=== PATIENT | female | born 1990 | race Two or more races ===

== ENCOUNTER 2019-09-17 18:47 | Emergency (ER) | payer SELFPAY ==
[~2019-09-17] VITALS: Ht 162.6 cm; Wt 70.3 kg
[2019-09-17] MEDS ORDERED: IV NORMAL SALINE 1000ML BAG 1,000 ML IV SCH (19:35)
--- NOTE | 2019-09-17 19:40 | PHYS DOC ---
Past Medical History Past Medical History: No Pertinent History Past Surgical History: Other Additional Past Surgical Histo: right ankle repair Smoking Status: Never Smoker Alcohol Use: None General Adult EDM: Chief Complaint: VAGINAL BLEEDING HPI: HPI: Patient is a 28 year old female who presents with vaginal bleeding and she is approximately 6 weeks . She is a G5, . She states that she has had bleeding for the last week and states that initially it was just spotting but it has gotten heavier. She also complains of lower abdominal cramping that started today. She denies any nausea, vomiting or diarrhea. She rates the cramping as mild to moderate. [] Review of Systems: Review of Systems: Constitutional: Denies fever or chills. [] Respiratory: Denies cough or shortness of breath. [] Cardiovascular: Denies chest pain or edema. [] GI: Complains of lower abdominal/pelvic cramping without vomiting or diarrhea. [] : Denies dysuria. Complains of vaginal bleeding. [] Neurologic: Denies headache, focal weakness or sensory changes. [] A full 10 point review of systems has been reviewed and is otherwise negative. Heart Score: Risk Factors: Risk Factors: DM, Current or recent (<one month) smoker, HTN, HLP, family history of CAD, obesity. Risk Scores: Score 0 - 3: 2.5% MACE over next 6 weeks - Discharge Home Score 4 - 6: 20.3% MACE over next 6 weeks - Admit for Clinical Observation Score 7 - 10: 72.7% MACE over next 6 weeks - Early Invasive Strategies Allergies: Allergies: Allergies Coded Allergies Type Severity Reaction Last Updated Verified No Known Drug Allergies 09/17/19 No Physical Exam: PE: Constitutional: Well developed, well nourished, no acute distress, non-toxic appearance. [] HENT: Normocephalic, atraumatic, bilateral external ears normal, oropharynx moist, no oral exudates, nose normal. [] Eyes: PERRLA, EOMI, conjunctiva normal, no discharge. [] Neck: Normal range of motion, no tenderness, supple, no stridor. [] Cardiovascular: Regular rate and rhythm [] Lungs & Thorax: Bilateral breath sounds clear to auscultation [] Abdomen: Bowel sounds normal, soft, no tenderness. [] Skin: Warm, dry, no erythema, no rash. [] Extremities: No tenderness, no cyanosis, no clubbing, ROM intact, no edema. [] Neurologic: Alert and oriented X 3, no focal deficits noted. [] Current Patient Data: Labs: Laboratory Tests Test 09/17/19 19:22 POC Urine HCG, Qualitative Hcg positive (Negative) Vital Signs: Vital Signs Date Time Temp Pulse Resp B/P (MAP) Pulse Ox O2 Delivery O2 Flow Rate FiO2 09/17/19 19:12 98.5 92 16 112/57 (75) 98 Room Air 98.5 EKG: EKG: [] Radiology/Procedures: Radiology/Procedures: [] Impression: PROCEDURE: OB TRANSVAG Transvaginal OB ultrasound less than 14 weeks 09/17/2019 CLINICAL HISTORY: First trimester with vaginal bleeding. TECHNIQUE: A real-time transvaginal pelvic ultrasound was performed. Multiple images were obtained. FINDINGS: A gestational sac is seen within the endometrial canal within the body/fundus of the uterus. Within this gestational sac an embryonic pole and associated sac are seen. The CRL of the embryonic pole measures 3.4 mm. This corresponds to an estimated gestational age by ultrasound of 6 weeks 0 days plus or minus a standard deviation of 5 days. Embryonic cardiac activity is seen with a heart rate of 157 bpm. Superiorly and to the right of the gestational sac, a hypoechoic area is seen which measures 1.6 cm in size. This likely represents an area of subchorionic hemorrhage. The uterus is otherwise within normal limits. Both ovaries are within normal limits in size and echogenicity. The right ovary measures 1.8 x 1.4 x 1.2 cm in size. The left ovary measures 2.0 x 1.2 x 1.1 cm in size. No adnexal mass is seen. No free fluid is noted. IMPRESSION: Single living IUP with an estimated gestational age by ultrasound of 6 weeks 0 days plus or minus a standard deviation of 5 days. The estimated date of delivery by ultrasound is 05/12/2020. Electronically signed by: Frank Barger MD (09/17/2019 9:58 PM) [id number] Course & Med Decision Making: Course & Med Decision Making Pertinent Labs and Imaging studies reviewed. (See chart for details) [] Dragon Disclaimer: Dragon Disclaimer: This electronic medical record was generated, in whole or in part, using a voice recognition dictation system. Departure Departure Impression: Primary Impression: Vaginal bleeding during Additional Impression: Threatened miscarriage in early Disposition: 01 HOME, SELF-CARE Condition: STABLE Referrals: NO PCP (PCP) Patient Instructions: Threatened Miscarriage, Vaginal Bleeding During , First Trimester Additional Instructions: Follow-up with [facility] in the next week. Justicifation of Admission Dx: Justifications for Admission: Justification of Admission Dx: Comment: (Not applicable) JORGE MARTEL Jr. DO Sep 17, 2019 19:40
[2019-09-17 19:48] LABS: BASO % 0 % (0-3); EOS # 0.1 x10^3/uL (0.0-0.7); EOS % 1 % (0-3); HEMATOCRIT 37.3 % (36.0-47.0); HEMOGLOBIN 13.1 g/dL (12.0-15.5); LYMPH % 28 % (24-48); MEAN CORPUSCULAR HEMOGLOBIN 31 pg (25-35); MEAN CORPUSCULAR HGB CONC 35 g/dL (31-37); MEAN CORPUSCULAR VOLUME 89 fL (79-100); MONO # 0.7 x10^3/uL (0.0-1.1); MONO % 6 % (0-9); NEUT % 65 % (31-73); PLATELET COUNT 240 x10^3/uL (140-400); RED BLOOD COUNT 4.21 x10^6/uL (3.50-5.40); RED CELL DISTRIBUTION WIDTH 12.5 % (11.5-14.5); WHITE BLOOD COUNT 10.7 x10^3/uL (4.0-11.0)
[2019-09-17 19:50] LABS: BILIRUBIN,URINE NEGATIVE (NEG); CLARITY,URINE CLOUDY; COLOR,URINE YELLOW; NITRITE,URINE NEGATIVE (NEG); PH,URINE 5.5 (<5.0-8.0); PROTEIN,URINE NEGATIVE (NEG-TRACE)
[2019-09-17 19:56] LABS: CALCIUM 8.8 mg/dL (8.5-10.1); CREATININE 0.9 mg/dL (0.6-1.0); GFR 73.5; POTASSIUM 3.2 mmol/L (3.5-5.1); SQUAMOUS EPITHELIAL CELL,UR MANY /LPF
[2019-09-17 19:57] LABS: BACTERIA,URINE MODERATE /HPF (0-FEW); RBC,URINE 0 /HPF (0-2); WBC,URINE >40 /HPF (0-4)
[2019-09-17 20:02] LABS: ALBUMIN 3.6 g/dL (3.4-5.0); ALBUMIN/GLOBULIN RATIO 0.9 (1.0-1.7); TOTAL BILIRUBIN 0.6 mg/dL (0.2-1.0); TOTAL PROTEIN 7.4 g/dL (6.4-8.2)
--- NOTE | 2019-09-17 22:01 | RAD ---
Transvaginal OB ultrasound less than 14 weeks 09/17/2019 CLINICAL HISTORY: First trimester with vaginal bleeding. TECHNIQUE: A real-time transvaginal pelvic ultrasound was performed. Multiple images were obtained. FINDINGS: A gestational sac is seen within the endometrial canal within the body/fundus of the uterus. Within this gestational sac an embryonic pole and associated sac are seen. The CRL of the embryonic pole measures 3.4 mm. This corresponds to an estimated gestational age by ultrasound of 6 weeks 0 days plus or minus a standard deviation of 5 days. Embryonic cardiac activity is seen with a heart rate of 157 bpm. Superiorly and to the right of the gestational sac, a hypoechoic area is seen which measures 1.6 cm in size. This likely represents an area of subchorionic hemorrhage. The uterus is otherwise within normal limits. Both ovaries are within normal limits in size and echogenicity. The right ovary measures 1.8 x 1.4 x 1.2 cm in size. The left ovary measures 2.0 x 1.2 x 1.1 cm in size. No adnexal mass is seen. No free fluid is noted. IMPRESSION: Single living IUP with an estimated gestational age by ultrasound of 6 weeks 0 days plus or minus a standard deviation of 5 days. The estimated date of delivery by ultrasound is 05/12/2020. Electronically signed by: Frank Barger MD (09/17/2019 9:58 PM) [id number]
[2019-09-17 22:13] VITALS: BP 106/67
== END 2019-09-17 22:22 | disposition home or self-care (01) ==
LOC: ER 18:47
DX: O03.9 Complete or unspecified spontaneous abortion without complication (principal)
CPT/HCPCS: 36415; 76817; 80053; 81001; 81025; 84702; 85025; 86900; 86901; 87086; 99285; J7030